=== PATIENT | female | born 1960 | race Two or more races ===

== ENCOUNTER 2016-10-11 13:24 | Emergency (ER) | payer BC, OTHER ==
[~2016-10-11] VITALS: Ht 170.2 cm; Wt 103.9 kg
[2016-10-11] MEDS ORDERED: IBUP-23 PO (13:30)
[2016-10-11] MEDS ORDERED: HYDR-552 PO (13:30)
--- NOTE | 2016-10-11 13:30 | NUR ---
MD De León at bedside
[2016-10-11] MEDS ORDERED: IBUPROFEN 400 MG TABLET ONE (13:32)
--- NOTE | 2016-10-11 13:32 | NUR ---
cathleen mcgheeo eval dt [employer]. No reported ko. Patient arrived in stabel condition. Appears in no apparent distress, respiration even and unlabored. Patient is complaning of neck and shoulders pain, skin is warm to touch and non diaphoretic. patient is afebrile. vss
[2016-10-11 13:39] VITALS: BP 139/84
--- NOTE | 2016-10-11 13:40 | NUR ---
Patient discharged to home in stable condition. Written and verbal after care instructions given. Patient verbalizes understanding of instruction. Patient is ambulatory and was picked up by her .
[2016-10-11] MEDS ORDERED: IBUPROFEN 400 MG TABLET PO ONE (14:00)
== END 2016-10-11 13:41 | disposition home or self-care (01) ==
LOC: ER 13:27
DX: M54.2 Cervicalgia (principal); G89.29 Other chronic pain; M54.9 Dorsalgia, unspecified; R07.9 Chest pain, unspecified; R42 Dizziness and giddiness; V49.40XA Driver injured in collision with unspecified motor vehicles in traffic accident, initial encounter; Y93.89 Activity, other specified; Y92.89 Other specified places as the place of occurrence of the external cause; Y99.9 Unspecified external cause status
CPT/HCPCS: 99283; A4606; Z7610